=== PATIENT | male | born 1965 | race Caucasian/White ===

== ENCOUNTER 2023-08-12 20:43 | Emergency (ER) | payer SELFPAY ==
[2023-08-12] MEDS ORDERED: OXYMETAZOLINE HCL 100 SPRAYS BOTTLE NAS STA (20:59)
[2023-08-12] MEDS ORDERED: TRANEXAMIC ACID 1,000 MG/10 ML VIAL NAS STA (20:59)
--- NOTE | 2023-08-12 21:01 | ED Physician Documentation ---
PD HPI HEENT - Stated complaint Stated Complaint: NOSE BLEEDING - Chief complaint Chief Complaint: Heent - History obtained from History obtained from: Patient - Additional information Additional information: 58-year-old male with history of coronary artery disease status post stent 1 month ago on aspirin and Brilinta presents for nosebleed x1 hour. Patient states that he was bending over when office and his nose began to gush blood. He has attempted to put pressure on the nose but it continues to bleed. Denies use of other blood thinners Review of Systems Constitutional: denies: Fever, Chills Nose: reports: Epistaxis. denies: Congestion, Foreign Body Cardiac: denies: Chest pain / pressure, Palpitations, Calf pain Respiratory: denies: Dyspnea, Cough, Wheezing GI: denies: Abdominal Pain, Nausea, Vomiting PD PAST MEDICAL HISTORY - Past Medical History Past Medical History: Yes - Allergies Allergies/Adverse Reactions: Allergies Allergy/AdvReac Type Severity Reaction Status Date / Time No Known Drug Allergies Allergy Verified 08/12/23 20:47 - Social History Does the pt smoke?: No Smoking Status: Never smoker Does the pt drink ETOH?: No Does the pt have substance abuse?: No - Immunizations Immunizations are current?: Yes - POLST Patient has POLST: No PD ED PE NORMAL - Vitals Vital signs reviewed: Yes - General General: Alert and oriented X 3, Well developed/nourished - HEENT HEENT: Atraumatic, Ears normal, Moist mucous membranes, Other (active bleeding from L nare) - Neck Neck: Supple, no meningeal sign - Cardiac Cardiac: RRR, Strong equal pulses - Respiratory Respiratory: No respiratory distress, Clear bilaterally - Abdomen Abdomen: Soft, Non tender, Non distended - Derm Derm: Normal color, Warm and dry, No rash - Extremities Extremities: No deformity, No tenderness to palpate, Normal ROM s pain - Neuro Neuro: Alert and oriented X 3, nut grinder 2-12 intact, No motor deficit, Normal speech - Psych Psych: Normal mood, Normal affect Results - Vitals Vitals: Vital Signs - 24 hr 08/12/23 08/12/23 08/12/23 20:47 21:57 22:05 Temperature 36.5 C Heart Rate 78 74 68 Respiratory 16 18 18 Rate Blood Pressure 140/90 H 132/92 H 138/94 H O2 Saturation 98 100 99 Oxygen O2 Source Room air PD Medical Decision Making - ED course Complexity details: reviewed results, re-evaluated patient, considered differential, d/w patient, d/w family ED course: Nontoxic-appearing gentleman with spontaneous nosebleed. Attempted nebulized TXA as well as Afrin to control bleeding, however bleeding was too brisk to be controlled with medications or cauterization. Rhino Rocket soaked in TXA was introduced to the left nare and inflated. Patient initially tolerated the Rhino Rocket poorly, having a vasovagal reaction every time he sat up. A small amount of air was deflated from the Rhino Rocket with resolution of all of patient's symptoms while still controlling the bleeding. He was given referral to ear nose and throat and I discussed care instructions at bedside. Patient discharged home in stable condition. Departure - Departure Disposition: 01 Home, Self Care Clinical Impression: Epistaxis Condition: Stable Instructions: Nosebleed, ED Nasal Packing Anterior Removable Follow-Up: Kali Bradley MD [Physician No Access] - Comments: MAKE SURE TO FOLLOW UP WITH AN EAR NOSE AND THROAT DOCTOR. CONTINUE TAKING YOUR BRILINTA UNLESS OTHERWISE DIRECTED BY YOUR GINNER HELPER. Forms: PCP List Discharge Date/Time: 08/12/23 22:49
[2023-08-12] MEDS ORDERED: ONDANSETRON ODT 4 MG TABLET TL STA (21:29)
[2023-08-12] MEDS ORDERED: ACETAMINOPHEN 325 MG TABLET PO STA (21:57)
[2023-08-12 22:07] VITALS: BP 138/94; O2SAT 99
== END 2023-08-12 22:49 | disposition home or self-care (01) ==
LOC: ED 20:43
DX: R04.0 Epistaxis (principal); Z95.5 Presence of coronary angioplasty implant and graft; Z79.82 Long term (current) use of aspirin
CPT/HCPCS: 30901; 93005; 99284; A9270